=== PATIENT | male | born 1960 | race Caucasian/White ===

== ENCOUNTER 2017-04-22 04:24 | Observation (INO) | payer BC ==
--- NOTE | ~2017-04-22 | OR ---
Unit #: [id number] #: [id number] Patient: CEDRICK BOWIE [id number] [address] [place], [place] [address] [id number] Gee MR#: [id number] NAME: CEDRICK BOWIE. ROOM: 232 Date of Procedure: 04/22/2017 Admission Date: 04/22/2017 Surgeon: Palmer Ortiz M.D. : 1960 Attending Physician: Palmer Ortiz M.D. Primary Care Physician: Kristen Felton M.D. OPERATIVE REPORT PREOPERATIVE DIAGNOSIS Distal left ureteral calculus. POSTOPERATIVE DIAGNOSIS Distal left ureteral calculus. PROCEDURES PERFORMED Left ureteroscopy, laser lithotripsy, stent placement. ANESTHESIA General. INDICATIONS FOR PROCEDURE This 56-year-old man presented to the emergency department with a 7 mm stone obstructing the distal left ureter. DESCRIPTION OF PROCEDURE The patient was given preoperative antibiotics and satisfactory general anesthesia. He was positioned in dorsal lithotomy and the genitalia prepped and draped. The 21-Gambian rigid cystoscope was introduced with a 30-degree lens and video. The bladder was grossly normal with healthy mucosa, but the orifices were very close to the bladder neck due to BPH. The stone was visible fluoroscopically in the mid pelvis. It was necessary to use a Pollack catheter to place the guidewire up the ureter and there was mild J hooking. The guidewire did pass easily beyond the stone however. I was able to dilate with Lubriglides, a 10 and 12, and advanced a rigid ureteroscope along the second guidewire up to where the stone was markedly irregular and hard. I used the 365 nanometer laser fiber at settings of 10 and 1.0 to chip off pieces until finally they were all small enough to basket extract. It did take 3 trips up the ureter with the basket and with irrigation to clear it of all fragments. At this point, stone was washed from the bladder, collected and sent for chemical analysis and the cystoscope back loaded and a 28 x 6 double-J stent deployed in excellent position cystoscopically and fluoroscopically. The bladder was drained and the cystoscope removed. The string secured to the dorsum of the penis and a Uro-jet applied. Stones were sent for chemical analysis. The patient will be discharged with Keflex and Percocet to follow up in the office Thursday, 6 days from now for removal of his stent. Unit #: [id number] #: [id number] Patient: CEDRICK BOWIE Dictated by... Yane Love/mary TD: 04/22/2017 23:25 JOB #: [id number] OPERATIVE REPORT Page 1 of 1 X Palmer Ortiz MD X PROCEDURE OPERATIVE NOTE
--- NOTE | ~2017-04-22 | CT4 ---
[facility] A Service of [facility] RADIOLOGY TEXT RESULTS PATIENT: CEDRICK BOWIE LOCATION: [facility] [id number] : [birth year] UNIT #: [id number] AGE: [address]: Palmer Ortiz MD SEX: M ORDER DR: [id number] [facility] [address] [facility]. [place], [place] [address] [id number] MR#: [id number] Acc #: [id number] NAME: CEDRICK BOWIE. : 1960 SEX: M STUDY DATE/TIME: 04/22/2017 6:26 UNIT: CED ROOM: 66413 STUDY DESCRIPTION: CT Abd and Pelv Wo Cont Attending Physician: Palmer Ortiz M.D. Ordering Physician: Raleigh Viera Aprn Primary Care Physician: Kristen Felton M.D. MEDICAL IMAGING REPORT This report is preliminary unless electronic signature is present EXAM CT abdomen and pelvis without contrast INDICATION Left-sided flank pain since last night. COMPARISON 04/03/2010. TECHNIQUE Axial 3 mm images were obtained through the abdomen and pelvis without IV or oral contrast. This CT examination was performed with one or more of the following radiation dose reduction techniques: automatic exposure control, adjustment of mA and/or kV according to patient size, and iterative reconstruction. FINDINGS Lung bases are clear. The liver, gallbladder, spleen, pancreas, adrenal glands and right kidney are normal. There is marked perinephric edema around the left kidney and there is moderate left hydronephrosis. The left ureter is dilated. This is caused by a distal ureteral stone almost at the bladder wall which measures 7 mm in diameter. The aorta is normal in size and there is no adenopathy. The bowel is normal. The bladder and prostate gland are normal. The bones are unremarkable. IMPRESSION 1. There is a 7 mm distal left ureteral stone almost at the ureterovesical juncture which is causing moderate hydronephrosis and marked perinephric edema. 2. Otherwise normal. [facility] A Service of [facility] RADIOLOGY TEXT RESULTS PATIENT: CEDRICK BOWIE LOCATION: [facility] [id number] : [birth year] UNIT #: [id number] AGE: [address]: Palmer Ortiz MD SEX: M ORDER DR: Dictated by... Shane Maurice M.D. THIS IS AN ELECTRONICALLY VERIFIED REPORT Shane Maurice M.D. at 04/22/2017 11:53 AM SOPHIA/asha TD: 04/22/2017 10:40 JOB #: [id number] MEDICAL IMAGING REPORT Page 1 of 1 COPY
[2017-04-22 05:30] LABS: POC - CKMB 1.4 ng/mL (0.0-7.9); POC - TROPONIN <0.05 ng/mL (<=0.05)
[2017-04-22 06:25] LABS: BASOPHIL% 0.1 % (0-2.5); EOSINOPHIL% 0.1 % (0.0-7.0); HEMATOCRIT 45.7 % (38.0-50.0); HEMOGLOBIN 15.1 gm/dL (13.0-16.0); LYMPHOCYTE# 1.4 X10e3 (1.0-3.5); LYMPHOCYTE% 9.4 % (17.0-45.0); MEAN CELL VOLUME 93.4 FL (83-96); MEAN CORPUSCULAR HEMOGLOBIN 30.9 PG (28-34); MEAN CORPUSCULAR HGB CONC 33.1 g/dL (30-36); MEAN PLATELET VOLUME 8.2 FL (6.5-11.5); MONOCYTE# 0.5 X10e3 (0-1.0); MONOCYTE% 3.5 % (3.0-12.0); NEUTROPHIL# 13.4 X10e3 (1.5-7.1); NEUTROPHIL% 86.9 % (40-75); PLATELET COUNT 238 X10e3 (140-420); RED CELL DISTRIBUTION WIDTH 12.5 % (11.0-15.5); WHITE BLOOD COUNT 15.4 X10e3 (4.0-10.5)
[2017-04-22 06:27] LABS: DIFF IND YES
[2017-04-22 06:35] LABS: ALBUMIN SERUM 4.6 g/dL (3.5-5.0); BILIRUBIN, DIRECT 0.2 mg/dL (0.0-0.2); BILIRUBIN,INDIRECT 1.1 mg/dL (0.0-0.9); BILIRUBIN,TOTAL 1.3 mg/dL (0.2-2.0); CALCIUM SERUM 9.3 mg/dL (8.4-10.2); CREATININE SERUM 1.2 mg/dL (0.6-1.4); GLOM FILT RATE Estimated 67.7 mL/min (>60); POTASSIUM 3.3 mmol/L (3.5-5.1); PROTEIN TOTAL SERUM 7.4 g/dL (6.0-8.3)
[2017-04-22 06:55] LABS: PLATELET ESTIMATE NORMAL (NORMAL); RBC NORMAL YES
[2017-04-22 06:56] LABS: ANISOCYTOSIS SL
[2017-04-22] MEDS ORDERED: LIPITOR PO (08:19)
[2017-04-22] MEDS ORDERED: HYDROCHLOROTH12.5 M1 PO (08:19)
[2017-04-22 10:43] LABS: URINE SOURCE CLEAN CATCH
[2017-04-22 10:54] LABS: URINE APPEARANCE CLEAR; URINE BILIRUBIN NEG (NEG); URINE BLOOD TRACE (NEG); URINE COLOR YELLOW; URINE GLUCOSE NEG (NEG); URINE KETONE 2+ (NEG); URINE LEUKOCYTE ESTERASE NEG (NEG); URINE NITRATE NEG (NEG); URINE PROTEIN NEG (NEG); URINE SPECIFIC GRAVITY 1.022 (1.003-1.035)
[2017-04-22 10:56] LABS: U HYALINE CASTS AUWI 0-2 /[LPF]; URINE BACTERIA AUWI NEG (NEGATIVE); URINE SQUAMOUS EPITHELIAL CELL NONE SEEN /[HPF]; UWBCS1 AUWI 0-2 (0-5)
[2017-04-22 11:00] LABS: CULTURE INDICATED? NO
[2017-04-22] MEDS ORDERED: KEFLEX500 M1 PO (16:42)
[2017-04-22] MEDS ORDERED: PERCOCET5/325 PO (16:42)
== END 2017-04-22 18:31 | disposition home or self-care (01) | DRG 694 ==
LOC: CED 04:24 → CEDOF 07:18 → CED 07:36 → C2A 16:21
PROVIDERS: Nurse Practitioner Family; Urology
DX: N13.2 Hydronephrosis with renal and ureteral calculous obstruction (principal); K21.9 Gastro-esophageal reflux disease without esophagitis; I10 Essential (primary) hypertension; Z85.828 Personal history of other malignant neoplasm of skin; E78.5 Hyperlipidemia, unspecified
CPT/HCPCS: 36415; 74176; 80048; 80076; 81003; 82365; 82553; 84484; 85025; 88300; 96361; 96374; 96375; 99285; C1758; C2617; G0378; J0690; J1100; J1885; J2250; J2270; J2405; J2710; J3010